=== PATIENT | male | born 1990 | race American Indian/Alaskan Native ===

== ENCOUNTER 2017-02-05 22:36 | Emergency (ER) | payer SELFPAY ==
[2017-02-05 22:47] VITALS: BP 119/72
[2017-02-06] MEDS ORDERED: XYLOCAINE 1% MPF 5 mL INFILTRATI ONE (02:00)
[2017-02-06] MEDS ORDERED: ROCEPHIN IM ONE (02:00)
[2017-02-06] MEDS ORDERED: TORADOL IM ONE (02:00)
--- NOTE | 2017-02-06 02:04 | Emergency Department Report ---
ED Headache HPI - General Chief Complaint: Headache Stated Complaint: HEADACHE Time Seen by Provider: 02/06/17 01:59 Source: patient Exam Limitations: no limitations - History of Present Illness Initial Comments: 26 YO MALE WITH PAIN IN MUSLIM AND RHINORRHEA THAT IS MALODOROUS FOR 2 DAYS. NO PHOTOPHOBIA OR SENSITIVITY. FIRST TIME HE HAS HAD MALODOROUS NASAL DISCHARGE Timing/Duration: 24 hours, constant Quality: moderate Head Injury Location: temporal Recent Head Trauma: no recent headache/trauma Associated Symptoms: nasal congestion (MALODOROUS DISCHARGE), nasal drainage Allergies/Adverse Reactions: Allergies No Known Allergies Allergy (Unverified 07/01/13 13:03) Home Medications: Ambulatory Orders ALBUTEROL NEB's [Proventil 0.083% NEBS] 1 neb IH Q4-6H PRN #30 neb 07/01/13 Albuterol Sulfate [Ventolin HFA] 2 puff IH Q4H PRN #1 hfa.aer.ad 07/01/13 Prednisone [predniSONE 10 mg (6-Day Pack, 21 Tabs)] 10 mg PO .TAPER #1 tab.ds.pk 07/01/13 Acetaminophen/Codeine [Tylenol /Codeine # 3 tab] 1 tab PO Q6H PRN #15 tab Amoxicillin/Potassium Clav [Augmentin 875-125 Tablet] 1 each PO BID #20 tablet 02/06/17 ED Review of Systems ROS: Stated complaint: HEADACHE Other details as noted in HPI Constitutional: denies: chills, fever Eyes: denies: eye pain, eye discharge, vision change ENT: congestion (MALODOROUS RHINORRHEA). denies: ear pain, throat pain Respiratory: denies: cough, shortness of breath, wheezing Cardiovascular: denies: chest pain, palpitations Endocrine: no symptoms reported Gastrointestinal: denies: abdominal pain, nausea, diarrhea Genitourinary: denies: urgency, dysuria Musculoskeletal: denies: back pain, joint swelling, arthralgia Skin: denies: rash, lesions Neurological: denies: headache, weakness, paresthesias Psychiatric: denies: anxiety, depression Hematological/Lymphatic: denies: easy bleeding, easy bruising ED Past Medical Hx - Past Medical History Hx of Cancer: Yes (prostate) Hx Asthma: Yes - Surgical History Past Surgical History?: No - Social History Smoking Status: Current Every Day Smoker - Medications Home Medications: Home Medications Medication Instructions Recorded Confirmed Last Taken Type ALBUTEROL NEB's [Proventil 0.083% 1 neb IH Q4-6H PRN #30 neb 07/01/13 Unknown Rx NEBS] Albuterol Sulfate [Ventolin HFA] 2 puff IH Q4H PRN #1 hfa.aer.ad 07/01/13 Unknown Rx Prednisone [predniSONE 10 mg 10 mg PO .TAPER #1 tab.ds.pk 07/01/13 Unknown Rx (6-Day Pack, 21 Tabs)] Acetaminophen/Codeine [Tylenol 1 tab PO Q6H PRN #15 tab 02/06/17 Unknown Rx /Codeine # 3 tab] Amoxicillin/Potassium Clav 1 each PO BID #20 tablet 02/06/17 Unknown Rx [Augmentin 875-125 Tablet] ED Physical Exam - General Limitations: No Limitations General appearance: alert, in no apparent distress - Head Head exam: Present: atraumatic, normocephalic - Eye Eye exam: Present: normal appearance, EOMI - ENT ENT exam: Present: mucous membranes moist, other (TNDERNESS OVER MAXILLARY SINUS AND ETHMOID SINUS ON THE LEFT) - Neck Neck exam: Present: normal inspection - Respiratory Respiratory exam: Present: normal lung sounds bilaterally. Absent: respiratory distress - Cardiovascular Cardiovascular Exam: Present: regular rate, normal rhythm. Absent: systolic murmur, diastolic murmur, rubs, gallop - GI/Abdominal GI/Abdominal exam: Present: soft, normal bowel sounds - Rectal Rectal exam: Present: deferred - Extremities Exam Extremities exam: Present: normal inspection - Back Exam Back exam: Present: normal inspection, full ROM - Neurological Exam Neurological exam: Present: alert, oriented X3, CN II-XII intact, normal gait - Psychiatric Psychiatric exam: Present: normal affect, normal mood - Skin Skin exam: Present: warm, dry, intact, normal color. Absent: rash ED Course Vital Signs 02/05/17 22:46 Temperature 99.1 F Pulse Rate 73 Respiratory 16 Rate Blood Pressure 119/72 [Right] O2 Sat by Pulse 98 Oximetry Critical care attestation.: If time is entered above; I have spent that time in minutes in the direct care of this critically ill patient, excluding procedure time. ED Disposition Clinical Impression: Sinusitis, acute Qualifiers: Sinusitis location: ethmoidal Recurrence: non-recurrent Qualified Code(s): J01.20 - Acute ethmoidal sinusitis, unspecified Disposition: DC- TO HOME OR SELFCARE Is pt being admited?: No Does the pt Need Aspirin: No Condition: Stable Instructions: Acute Bacterial Rhinosinusitis (ED), Acute Headache (ED) Additional Instructions: RETURN TO ER FOR ANY REASON, SEE YOUR DR IN 2 DAYS, RETURN IF DIZZY, NUMBNESS ON ANY BODY PART, FEVER,CHILLS. Prescriptions: Acetaminophen/Codeine [Tylenol /Codeine # 3 tab] 1 tab PO Q6H PRN #15 tab PRN Reason: Pain Amoxicillin/Potassium Clav [Augmentin 875-125 Tablet] 1 each PO BID #20 tablet Referrals: PRIMARY CARE, [Primary Care Provider] - 3-5 Days [facility] [Outside] - 3-5 Days Time of Disposition: 02:05
== END 2017-02-06 02:44 | disposition home or self-care (01) ==
LOC: ED 22:36
DX: J01.90 Acute sinusitis, unspecified (principal); J45.909 Unspecified asthma, uncomplicated; F17.200 Nicotine dependence, unspecified, uncomplicated; C61 Malignant neoplasm of prostate
CPT/HCPCS: 96372; 99282; J0696; J1885